=== PATIENT | female | born 1945 | race Caucasian/White ===

== ENCOUNTER → 2016-08-24 | Outpatient (CLI) | payer MEDICARE ==
[2016-08-24 12:55] LABS: HEMOGLOBIN 13.8 g/dL (11.7-16.4)
[2016-08-24 13:16] LABS: ASPARTATE AMINO TRANSFERASE 93 U/L (15-37); BLOOD UREA NITROGEN 22 mg/dL (7-18)
== END | disposition home or self-care (01) ==
LOC: CFH 07:13
PROVIDERS: ATTEND Specialist
DX: C50.912 Malignant neoplasm of unspecified site of left female breast (principal); N39.0 Urinary tract infection, site not specified; R73.09 Other abnormal glucose
CPT/HCPCS: 36415; 80053; 81001; 83036; 85025

== ENCOUNTER → 2016-09-10 | Outpatient (CLI) | payer MEDICARE | END | disposition home or self-care (01) | LOC: CFH 08:15 | PROVIDERS: ATTEND Specialist | DX: C78.7 Secondary malignant neoplasm of liver and intrahepatic bile duct (principal); C50.919 Malignant neoplasm of unspecified site of unspecified female breast; K76.0 Fatty (change of) liver, not elsewhere classified | CPT/HCPCS: 76705 ==

== ENCOUNTER → 2016-09-24 | Outpatient (CLI) | payer MEDICARE ==
[2016-09-24 11:50] LABS: ASPARTATE AMINO TRANSFERASE 76 U/L (15-37); BLOOD UREA NITROGEN 27 mg/dL (7-18)
[2016-09-25 10:33] LABS: HEPATITIS C VIRUS ANTIBODY Nonreactive (Nonreactive)
== END | disposition home or self-care (01) ==
LOC: CFH 07:27
PROVIDERS: ATTEND Specialist
DX: C50.919 Malignant neoplasm of unspecified site of unspecified female breast (principal); M45.0 Ankylosing spondylitis of multiple sites in spine; Z92.25 Personal history of immunosuppression therapy
CPT/HCPCS: 36415; 80053; 82728; 85025; 86803; 87340

== ENCOUNTER → 2016-10-27 | Outpatient (CLI) | payer MEDICARE ==
[2016-10-27 13:13] LABS: ASPARTATE AMINO TRANSFERASE 57 U/L (15-37); BLOOD UREA NITROGEN 27 mg/dL (7-18)
== END | disposition home or self-care (01) ==
LOC: CFH 07:33
PROVIDERS: ATTEND Specialist
DX: C50.912 Malignant neoplasm of unspecified site of left female breast (principal)
CPT/HCPCS: 36415; 80053; 85025

== ENCOUNTER → 2016-11-25 | Outpatient (CLI) | payer MEDICARE ==
[2016-11-25 13:02] LABS: ASPARTATE AMINO TRANSFERASE 89 U/L (15-37); BLOOD UREA NITROGEN 20 mg/dL (7-18)
== END | disposition home or self-care (01) ==
LOC: CFH 08:01
PROVIDERS: ATTEND Specialist
DX: M45.0 Ankylosing spondylitis of multiple sites in spine (principal); R94.5 Abnormal results of liver function studies; Z92.25 Personal history of immunosuppression therapy
CPT/HCPCS: 36415; 80053; 85025

== ENCOUNTER → 2016-12-27 | Outpatient (CLI) | payer MEDICARE ==
[2016-12-27 12:42] LABS: BLOOD UREA NITROGEN 24 mg/dL (7-18)
[2016-12-27 12:47] LABS: ASPARTATE AMINO TRANSFERASE 113 U/L (15-37)
== END | disposition home or self-care (01) ==
LOC: CFH 07:40
PROVIDERS: ATTEND Specialist
DX: M45.0 Ankylosing spondylitis of multiple sites in spine (principal); R94.5 Abnormal results of liver function studies; Z92.25 Personal history of immunosuppression therapy
CPT/HCPCS: 36415; 80053; 85025

== ENCOUNTER → 2017-02-25 | Outpatient (CLI) | payer MEDICARE ==
[2017-02-25 12:51] LABS: HEMATOCRIT 41.7 % (34.6-47.8); HEMOGLOBIN 14.2 g/dL (11.7-16.4)
[2017-02-25 13:15] LABS: ASPARTATE AMINO TRANSFERASE 125 U/L (15-37); BLOOD UREA NITROGEN 22 mg/dL (7-18)
== END | disposition home or self-care (01) ==
LOC: CFH 07:28
PROVIDERS: ATTEND Specialist
DX: M45.0 Ankylosing spondylitis of multiple sites in spine (principal); R94.5 Abnormal results of liver function studies; Z92.25 Personal history of immunosuppression therapy
CPT/HCPCS: 36415; 80053; 85025

== ENCOUNTER → 2017-04-28 | Outpatient (CLI) | payer MEDICARE ==
[2017-04-28 12:30] LABS: HEMOGLOBIN 14.5 g/dL (11.7-16.4); WHITE BLOOD COUNT 5.3 x10^3/uL (3.4-10)
[2017-04-28 12:51] LABS: ASPARTATE AMINO TRANSFERASE 65 U/L (15-37); BLOOD UREA NITROGEN 20 mg/dL (7-18)
== END | disposition home or self-care (01) ==
LOC: CFH 07:03
PROVIDERS: ATTEND Specialist
DX: M45.0 Ankylosing spondylitis of multiple sites in spine (principal); R94.5 Abnormal results of liver function studies; Z92.25 Personal history of immunosuppression therapy
CPT/HCPCS: 36415; 80053; 85025

== ENCOUNTER → 2017-05-18 | Outpatient (CLI) | payer MEDICARE | END | disposition home or self-care (01) | LOC: CFH 10:02 | PROVIDERS: ATTEND Specialist | DX: Z12.31 Encounter for screening mammogram for malignant neoplasm of breast (principal); Z90.12 Acquired absence of left breast and nipple; Z85.3 Personal history of malignant neoplasm of breast | CPT/HCPCS: 77063; G0202 ==

== ENCOUNTER → 2017-06-29 | Outpatient (CLI) | payer MEDICARE ==
[2017-06-29 12:38] LABS: BASOPHILS # (AUTO) 0.03 x10^3/uL (0-0.1); BASOPHILS % (AUTO) 0 % (0-1); EOSINOPHILS # (AUTO) 0.06 x10^3/uL (0-0.4); EOSINOPHILS % (AUTO) 1 % (1-7); LYMPHOCYTES # (AUTO) 2.19 x10^3/uL (1-3.4); LYMPHOCYTES % (AUTO) 26 % (22-44); MD NO; MEAN CORPUSCULAR HEMOGLOBIN 32.4 pg (27.0-34.8); MEAN CORPUSCULAR VOLUME 98.2 fL (80-100); MEAN PLATELET VOLUME 10.1 fL (7.4-10.4); MONOCYTES # (AUTO) 0.81 x10^3/uL (0.2-0.8); MONOCYTES % (AUTO) 10 % (2-9); NEUTROPHILS # (AUTO) 5.38 x10^3/uL (1.8-6.8); NEUTROPHILS % (AUTO) 64 % (42-75); PLATELET COUNT 222 x10^3/uL (130-400); RED CELL DISTRIBUTION WIDTH 14.6 % (9.6-15.2)
[2017-06-29 12:49] LABS: ALBUMIN 3.6 g/dL (3.4-5.0); ANION GAP 9 mmol/L (5-15); CALCIUM 9.3 mg/dL (8.5-10.1); CHLORIDE 105 mmol/L (98-107)
[2017-06-29 12:53] LABS: ALANINE AMINOTRANSFERASE 160 U/L (12-78); ALKALINE PHOSPHATASE 115 U/L (45-117); BILIRUBIN,TOTAL 0.8 mg/dL (0.2-1.0); TOTAL PROTEIN 7.1 g/dL (6.4-8.2)
== END ==
LOC: CFH 07:42
PROVIDERS: ATTEND Specialist
DX: M45.0 Ankylosing spondylitis of multiple sites in spine (principal); M46.90 Unspecified inflammatory spondylopathy, site unspecified; R94.5 Abnormal results of liver function studies; Z92.25 Personal history of immunosuppression therapy
CPT/HCPCS: 36415; 80053; 85025

== ENCOUNTER → 2017-08-26 | Outpatient (CLI) | payer MEDICARE ==
[2017-08-26 12:37] LABS: BASOPHILS # (AUTO) 0.02 x10^3/uL (0-0.1); BASOPHILS % (AUTO) 0 % (0-1); EOSINOPHILS # (AUTO) 0.04 x10^3/uL (0-0.4); EOSINOPHILS % (AUTO) 1 % (1-7); LYMPHOCYTES # (AUTO) 2.17 x10^3/uL (1-3.4); LYMPHOCYTES % (AUTO) 33 % (22-44); MD NO; MEAN CORPUSCULAR HEMOGLOBIN 32.7 pg (27.0-34.8); MEAN CORPUSCULAR HGB CONC 33.5 g/dL (32.4-35.8); MEAN CORPUSCULAR VOLUME 97.7 fL (80-100); MEAN PLATELET VOLUME 9.9 fL (7.4-10.4); MONOCYTES # (AUTO) 0.94 x10^3/uL (0.2-0.8); MONOCYTES % (AUTO) 14 % (2-9); NEUTROPHILS # (AUTO) 3.35 x10^3/uL (1.8-6.8); NEUTROPHILS % (AUTO) 51 % (42-75); PLATELET COUNT 204 x10^3/uL (130-400); RED BLOOD COUNT 4.08 x10^6/uL (3.82-5.3); RED CELL DISTRIBUTION WIDTH 14.2 % (9.6-15.2)
[2017-08-26 12:48] LABS: ALBUMIN 3.3 g/dL (3.4-5.0); ANION GAP 8 mmol/L (5-15); CHLORIDE 108 mmol/L (98-107)
[2017-08-26 12:51] LABS: ALANINE AMINOTRANSFERASE 179 U/L (12-78); ALKALINE PHOSPHATASE 107 U/L (45-117); BILIRUBIN,TOTAL 0.8 mg/dL (0.2-1.0); CALCIUM 9.1 mg/dL (8.5-10.1); CREATININE 0.84 mg/dL (0.55-1.02); TOTAL PROTEIN 6.9 g/dL (6.4-8.2)
== END | disposition home or self-care (01) ==
LOC: CFH 07:00
PROVIDERS: ATTEND Specialist
DX: M45.0 Ankylosing spondylitis of multiple sites in spine (principal); M46.90 Unspecified inflammatory spondylopathy, site unspecified; R94.5 Abnormal results of liver function studies; Z92.25 Personal history of immunosuppression therapy
CPT/HCPCS: 36415; 80053; 85025

== ENCOUNTER → 2017-11-25 | Outpatient (CLI) | payer MEDICARE ==
[2017-11-25 12:49] LABS: BASOPHILS # (AUTO) 0.04 x10^3/uL (0-0.1); BASOPHILS % (AUTO) 1 % (0-1); EOSINOPHILS # (AUTO) 0.08 x10^3/uL (0-0.4); EOSINOPHILS % (AUTO) 2 % (1-7); LYMPHOCYTES # (AUTO) 1.71 x10^3/uL (1-3.4); LYMPHOCYTES % (AUTO) 32 % (22-44); MD NO; MEAN CORPUSCULAR HEMOGLOBIN 33.3 pg (27.0-34.8); MEAN CORPUSCULAR HGB CONC 33.8 g/dL (32.4-35.8); MEAN CORPUSCULAR VOLUME 98.4 fL (80-100); MONOCYTES # (AUTO) 0.62 x10^3/uL (0.2-0.8); MONOCYTES % (AUTO) 12 % (2-9); NEUTROPHILS # (AUTO) 2.86 x10^3/uL (1.8-6.8); NEUTROPHILS % (AUTO) 54 % (42-75); PLATELET COUNT 176 x10^3/uL (130-400); RED BLOOD COUNT 4.15 x10^6/uL (3.82-5.3); RED CELL DISTRIBUTION WIDTH 14.3 % (9.6-15.2)
[2017-11-25 14:03] LABS: CALCIUM 9.4 mg/dL (8.5-10.1); CHLORIDE 107 mmol/L (98-107)
[2017-11-25 14:17] LABS: ALANINE AMINOTRANSFERASE 74 U/L (12-78); ALBUMIN 3.5 g/dL (3.4-5.0); ALKALINE PHOSPHATASE 125 U/L (45-117); ANION GAP 6 mmol/L (5-15); BILIRUBIN,TOTAL 0.8 mg/dL (0.2-1.0); CREATININE 0.83 mg/dL (0.55-1.02); T4 (THYROXINE) 9.9 mcg/dL (4.8-13.9); TOTAL PROTEIN 7.1 g/dL (6.4-8.2)
== END | disposition home or self-care (01) ==
LOC: CFH 07:09
PROVIDERS: ATTEND Specialist
DX: C50.919 Malignant neoplasm of unspecified site of unspecified female breast (principal); I10 Essential (primary) hypertension
CPT/HCPCS: 36415; 80053; 84436; 84443; 84481; 85025

== ENCOUNTER → 2018-02-28 | Outpatient (CLI) | payer MEDICARE ==
[2018-02-28 12:42] LABS: BASOPHILS % (AUTO) 0 % (0-1); EOSINOPHILS # (AUTO) 0.04 x10^3/uL (0-0.4); EOSINOPHILS % (AUTO) 1 % (1-7); LYMPHOCYTES # (AUTO) 1.79 x10^3/uL (1-3.4); LYMPHOCYTES % (AUTO) 34 % (22-44); MD NO; MEAN CORPUSCULAR HEMOGLOBIN 32.9 pg (27.0-34.8); MEAN CORPUSCULAR HGB CONC 33.5 g/dL (32.4-35.8); MEAN CORPUSCULAR VOLUME 98.3 fL (80-100); MEAN PLATELET VOLUME 9.6 fL (7.4-10.4); MONOCYTES # (AUTO) 0.77 x10^3/uL (0.2-0.8); MONOCYTES % (AUTO) 15 % (2-9); NEUTROPHILS # (AUTO) 2.72 x10^3/uL (1.8-6.8); NEUTROPHILS % (AUTO) 51 % (42-75); PLATELET COUNT 198 x10^3/uL (130-400); RED BLOOD COUNT 4.07 x10^6/uL (3.82-5.3); RED CELL DISTRIBUTION WIDTH 13.5 % (9.6-15.2)
[2018-02-28 12:53] LABS: ALANINE AMINOTRANSFERASE 109 U/L (12-78); ALBUMIN 3.6 g/dL (3.4-5.0); ANION GAP 9 mmol/L (5-15); CALCIUM 9.4 mg/dL (8.5-10.1); CHLORIDE 108 mmol/L (98-107); CREATININE 0.67 mg/dL (0.55-1.02)
[2018-02-28 12:56] LABS: ALKALINE PHOSPHATASE 119 U/L (45-117); BILIRUBIN,TOTAL 0.7 mg/dL (0.2-1.0); TOTAL PROTEIN 7.4 g/dL (6.4-8.2)
== END | disposition home or self-care (01) ==
LOC: CFH 07:00
PROVIDERS: ATTEND Specialist
DX: M45.0 Ankylosing spondylitis of multiple sites in spine (principal); M46.90 Unspecified inflammatory spondylopathy, site unspecified; R94.5 Abnormal results of liver function studies; C50.919 Malignant neoplasm of unspecified site of unspecified female breast; Z92.25 Personal history of immunosuppression therapy
CPT/HCPCS: 36415; 80053; 85025; 86300

== ENCOUNTER → 2018-05-18 | Outpatient (CLI) | payer MEDICARE ==
[2018-05-18 12:42] LABS: BASOPHILS # (AUTO) 0.03 x10^3/uL (0-0.1); BASOPHILS % (AUTO) 1 % (0-1); EOSINOPHILS # (AUTO) 0.06 x10^3/uL (0-0.4); EOSINOPHILS % (AUTO) 1 % (1-7); LYMPHOCYTES # (AUTO) 2.43 x10^3/uL (1-3.4); LYMPHOCYTES % (AUTO) 34 % (22-44); MD NO; MEAN CORPUSCULAR HEMOGLOBIN 33.5 pg (27.0-34.8); MEAN CORPUSCULAR HGB CONC 34.1 g/dL (32.4-35.8); MEAN CORPUSCULAR VOLUME 98.4 fL (80-100); MEAN PLATELET VOLUME 9.6 fL (7.4-10.4); MONOCYTES % (AUTO) 15 % (2-9); NEUTROPHILS # (AUTO) 3.55 x10^3/uL (1.8-6.8); NEUTROPHILS % (AUTO) 50 % (42-75); PLATELET COUNT 217 x10^3/uL (130-400); RED BLOOD COUNT 4.45 x10^6/uL (3.82-5.3); RED CELL DISTRIBUTION WIDTH 13.6 % (9.6-15.2)
[2018-05-18 12:53] LABS: CHLORIDE 109 mmol/L (98-107)
[2018-05-18 13:14] LABS: ALANINE AMINOTRANSFERASE 86 U/L (12-78); ALKALINE PHOSPHATASE 135 U/L (45-117); ANION GAP 7 mmol/L (5-15); BILIRUBIN,TOTAL 0.7 mg/dL (0.2-1.0); CALCIUM 9.5 mg/dL (8.5-10.1); CREATININE 0.89 mg/dL (0.55-1.02); TOTAL PROTEIN 7.7 g/dL (6.4-8.2)
== END | disposition home or self-care (01) ==
LOC: CFH 09:05
PROVIDERS: ATTEND Specialist
DX: Z12.31 Encounter for screening mammogram for malignant neoplasm of breast (principal); M85.88 Other specified disorders of bone density and structure, other site; C50.412 Malignant neoplasm of upper-outer quadrant of left female breast; Z85.3 Personal history of malignant neoplasm of breast
CPT/HCPCS: 36415; 77080; 80053; 85025; 86300; 77067

== ENCOUNTER → 2018-08-02 | Outpatient (CLI) | payer MEDICARE ==
[2018-08-02 13:04] LABS: BASOPHILS # (AUTO) 0.04 x10^3/uL (0-0.1); BASOPHILS % (AUTO) 1 % (0-1); EOSINOPHILS # (AUTO) 0.04 x10^3/uL (0-0.4); EOSINOPHILS % (AUTO) 1 % (1-7); LYMPHOCYTES # (AUTO) 1.93 x10^3/uL (1-3.4); LYMPHOCYTES % (AUTO) 31 % (22-44); MD NO; MEAN CORPUSCULAR HEMOGLOBIN 33.6 pg (27.0-34.8); MEAN CORPUSCULAR HGB CONC 34.4 g/dL (32.4-35.8); MEAN CORPUSCULAR VOLUME 97.6 fL (80-100); MEAN PLATELET VOLUME 8.8 fL (7.4-10.4); MONOCYTES # (AUTO) 0.98 x10^3/uL (0.2-0.8); MONOCYTES % (AUTO) 16 % (2-9); NEUTROPHILS # (AUTO) 3.29 x10^3/uL (1.8-6.8); NEUTROPHILS % (AUTO) 52 % (42-75); PLATELET COUNT 222 x10^3/uL (130-400); RED CELL DISTRIBUTION WIDTH 13.3 % (9.6-15.2)
[2018-08-02 13:17] LABS: CALCIUM 9.6 mg/dL (8.5-10.1); CHLORIDE 109 mmol/L (98-107)
[2018-08-02 13:22] LABS: ALANINE AMINOTRANSFERASE 129 U/L (12-78); ALBUMIN 3.9 g/dL (3.4-5.0); ALKALINE PHOSPHATASE 123 U/L (45-117); ANION GAP 6 mmol/L (5-15); BILIRUBIN,TOTAL 0.9 mg/dL (0.2-1.0); CREATININE 0.78 mg/dL (0.55-1.02); TOTAL PROTEIN 7.2 g/dL (6.4-8.2)
== END | disposition home or self-care (01) ==
LOC: CFH 08:08
PROVIDERS: ATTEND Internal Medicine Hematology & Oncology
DX: C50.412 Malignant neoplasm of upper-outer quadrant of left female breast (principal)
CPT/HCPCS: 36415; 80053; 85025

== ENCOUNTER 2018-09-17 09:47 | Emergency (ER) | payer MEDICARE ==
[~2018-09-17] VITALS: Ht 165.1 cm; Wt 142.0 kg
[2018-09-17 09:50] VITALS: BP 150/82
[2018-09-17] MEDS ORDERED: CARBAMIDE PEROXIDE EAR DROPS 6.5%, 15ML ONE (10:13)
[2018-09-17] MEDS ORDERED: CARBAMIDE PEROXIDE EAR DROPS 6.5%, 15ML RIGHT EAR ONE (10:30)
== END 2018-09-17 11:28 | disposition home or self-care (01) ==
LOC: ED 11:19
DX: H61.21 Impacted cerumen, right ear (principal); I10 Essential (primary) hypertension; Z87.891 Personal history of nicotine dependence
CPT/HCPCS: 69209; 99282

== ENCOUNTER 2018-11-03 07:26 | Outpatient (CLI) | payer MEDICARE ==
[2018-11-03 10:58] LABS: BASOPHILS # (AUTO) 0.03 x10^3/uL (0-0.1); BASOPHILS % (AUTO) 1 % (0-1); EOSINOPHILS # (AUTO) 0.04 x10^3/uL (0-0.4); EOSINOPHILS % (AUTO) 1 % (1-7); LYMPHOCYTES # (AUTO) 1.86 x10^3/uL (1-3.4); LYMPHOCYTES % (AUTO) 29 % (22-44); MD NO; MEAN CORPUSCULAR HEMOGLOBIN 33.4 pg (27.0-34.8); MEAN CORPUSCULAR HGB CONC 33.4 g/dL (32.4-35.8); MEAN CORPUSCULAR VOLUME 99.8 fL (80-100); MEAN PLATELET VOLUME 9.4 fL (7.4-10.4); MONOCYTES # (AUTO) 0.95 x10^3/uL (0.2-0.8); MONOCYTES % (AUTO) 15 % (2-9); NEUTROPHILS # (AUTO) 3.46 x10^3/uL (1.8-6.8); NEUTROPHILS % (AUTO) 55 % (42-75); PLATELET COUNT 191 x10^3/uL (130-400)
[2018-11-03 12:20] LABS: ANION GAP 6 mmol/L (5-15); CALCIUM 9.7 mg/dL (8.5-10.1); CHLORIDE 109 mmol/L (98-107)
[2018-11-03 12:24] LABS: % IRON SATURATION 26 % (20-55); ALANINE AMINOTRANSFERASE 112 U/L (12-78); ALKALINE PHOSPHATASE 129 U/L (45-117); BILIRUBIN,TOTAL 0.8 mg/dL (0.2-1.0); CREATININE 0.82 mg/dL (0.55-1.02); IRON LEVEL 104 mcg/dL (50-170); TOTAL IRON BINDING CAPACITY 394 mcg/dL (250-450); TOTAL PROTEIN 7.2 g/dL (6.4-8.2)
== END 2018-11-03 23:59 | disposition home or self-care (01) ==
LOC: LAB 07:26 → CFH 23:59
PROVIDERS: ATTEND Specialist
DX: C50.412 Malignant neoplasm of upper-outer quadrant of left female breast (principal); M45.0 Ankylosing spondylitis of multiple sites in spine; R74.0 Nonspecific elevation of levels of transaminase and lactic acid dehydrogenase [LDH]
CPT/HCPCS: 36415; 80053; 82103; 82390; 83516; 83540; 83550; 85025; 86038; 86480; 86704; 86706; 87340

== ENCOUNTER 2019-01-05 12:54 | Outpatient (CLI) | payer MEDICARE | END 2019-01-05 23:59 | disposition home or self-care (01) | LOC: CFH 12:54 | PROVIDERS: ATTEND Internal Medicine Hematology & Oncology | DX: C50.412 Malignant neoplasm of upper-outer quadrant of left female breast (principal) | CPT/HCPCS: 36415; 80053; 85025 ==

== ENCOUNTER 2019-03-21 08:08 | Outpatient (CLI) | payer MEDICARE ==
[2019-03-21 13:24] LABS: MEAN CORPUSCULAR HEMOGLOBIN 33.8 pg (27.0-34.8); MEAN CORPUSCULAR HGB CONC 33.9 g/dL (32.4-35.8); MEAN CORPUSCULAR VOLUME 99.5 fL (80-100); MEAN PLATELET VOLUME 8.7 fL (7.4-10.4); PLATELET COUNT 203 x10^3/uL (130-400); RED CELL DISTRIBUTION WIDTH 13.5 % (9.6-15.2)
[2019-03-21 13:25] LABS: INTERNATIONAL NORMALIZED RATIO 1.03 (0.93-1.1); PROTHROMBIN TIME 10.8 Seconds (9.6-11.5)
[2019-03-21 13:44] LABS: HEMOGLOBIN A1C 5.4 % (4.2-6.3)
[2019-03-21 14:11] LABS: MD YES
[2019-03-21 14:14] LABS: BAND#(MANUAL) 0.11 x10^3/uL; BANDS%(MANUAL) 2 % (0-7); EOS#(MANUAL) 0.16 x10^3/uL (0.0-0.4); EOS% (MANUAL) 3 % (1-7); LYMPH#(MANUAL) 1.84 x10^3/uL (1-3.4); LYMPHS% (MANUAL) 34 % (22-44); MONOS#(MANUAL) 0.49 x10^3/uL (0.3-2.7); MONOS% (MANUAL) 9 % (2-9); REACTIVE LYMPHS # (MANUAL) 0.27 x10^3/uL (0-0); REACTIVE LYMPHS % (MANUAL) 5 % (0-0); SEG#(MANUAL) 2.54 x10^3/uL (1.8-6.8); SEGS% (MANUAL) 47 % (42-75)
[2019-03-21 14:15] LABS: <PLATELET ESTIMATE> ADEQUATE; <PLT MORPHOLOGY> NORMAL PLT MORPH; <RBC MORPHOLOGY> NORMAL
== END 2019-03-21 23:59 | disposition home or self-care (01) ==
LOC: CFH 08:08
PROVIDERS: ATTEND Physician Assistant
DX: R74.8 Abnormal levels of other serum enzymes (principal)
CPT/HCPCS: 36415; 83036; 85025; 85610

== ENCOUNTER 2019-03-23 06:02 | Day surgery (SDC) | payer MEDICARE ==
[~2019-03-23] VITALS: Ht 165.1 cm; Wt 141.6 kg
[2019-03-23 07:28] VITALS: BP 175/77
[2019-03-23] MEDS ORDERED: ANAS1TAB PO (07:37)
[2019-03-23] MEDS ORDERED: GLUC1TAB35 PO (07:37)
[2019-03-23] MEDS ORDERED: zometa (07:37)
[2019-03-23] MEDS ORDERED: UBID100C41 PO (07:37)
[2019-03-23] MEDS ORDERED: TELM1TAB3 PO (07:37)
[2019-03-23] MEDS ORDERED: TURM538C PO (07:37)
[2019-03-23] MEDS ORDERED: MULT-658 PO (07:37)
[2019-03-23] MEDS ORDERED: MIDAZOLAM 1 MG/ML, 5ML ONE (07:41)
[2019-03-23] MEDS ORDERED: FLUMAZENIL 0.1 MG/1 ML, 5ML ONE (07:41)
[2019-03-23] MEDS ORDERED: FENTANYL PF 100 MCG/2ML ONE (07:41)
[2019-03-23] MEDS ORDERED: NALOXONE 1 MG/ML, 2ML ONE (07:41)
[2019-03-23] MEDS ORDERED: LIDOCAINE 1%, 10ML ONE (08:04)
[2019-03-23] MEDS ORDERED: ASPI325T17 PO (08:14)
== END 2019-03-23 09:50 | disposition home or self-care (01) ==
LOC: OUT 06:02 → EDSTATUS 08:00 → OUT 09:50
PROVIDERS: ATTEND Physician Assistant
DX: R74.8 Abnormal levels of other serum enzymes (principal); I10 Essential (primary) hypertension; G47.33 Obstructive sleep apnea (adult) (pediatric); I27.20 Pulmonary hypertension, unspecified; E66.9 Obesity, unspecified; Z68.43 Body mass index [BMI] 50.0-59.9, adult; Z79.899 Other long term (current) drug therapy; Z85.3 Personal history of malignant neoplasm of breast; Z87.891 Personal history of nicotine dependence; Z90.12 Acquired absence of left breast and nipple
CPT/HCPCS: 47000; 76942; 88307; 88313; 99156; 99157; J2250; J3010; J2310

== ENCOUNTER 2019-05-21 09:33 | Outpatient (CLI) | payer MEDICARE ==
[~2019-05-21 09:33] MED LIST: ANAS1TAB PO; ASPI325T17 PO; GLUC1TAB35 PO; MULT-658 PO; TELM1TAB3 PO; TURM538C PO; UBID100C41 PO; zometa
[2019-05-21 12:53] LABS: ALBUMIN 3.7 g/dL (3.4-5.0); BILIRUBIN, DIRECT 0.2 mg/dL (0.1-0.2); BILIRUBIN,INDIRECT 0.7 mg/dL (0.0-2.0); BILIRUBIN,TOTAL 0.9 mg/dL (0.2-1.0)
== END 2019-05-21 23:59 | disposition home or self-care (01) ==
LOC: CFH 09:33
PROVIDERS: ATTEND Internal Medicine Hematology & Oncology
DX: Z12.31 Encounter for screening mammogram for malignant neoplasm of breast (principal); R74.8 Abnormal levels of other serum enzymes
CPT/HCPCS: 36415; 77063; 77067; 80076

== ENCOUNTER → 2019-07-17 | Outpatient (CLI) | payer MEDICARE ==
[2019-07-17 13:13] LABS: CHLORIDE 112 mmol/L (98-107)
[2019-07-17 13:33] LABS: ALANINE AMINOTRANSFERASE 89 U/L (12-78); ALBUMIN 3.8 g/dL (3.4-5.0); ALKALINE PHOSPHATASE 108 U/L (45-117); ANION GAP 6 mmol/L (5-15); BILIRUBIN,TOTAL 0.7 mg/dL (0.2-1.0); CALCIUM 9.7 mg/dL (8.5-10.1); CREATININE 0.77 mg/dL (0.55-1.02); TOTAL PROTEIN 6.9 g/dL (6.4-8.2)
[2019-07-17 13:36] LABS: MEAN CORPUSCULAR HEMOGLOBIN 33.3 pg (27.0-34.8); MEAN PLATELET VOLUME 8.8 fL (7.4-10.4); PLATELET COUNT 212 x10^3/uL (130-400); RED BLOOD COUNT 4.23 x10^6/uL (3.82-5.3); RED CELL DISTRIBUTION WIDTH 13.1 % (9.6-15.2)
[2019-07-17 13:42] LABS: BASOPHILS # (AUTO) 0.03 x10^3/uL (0-0.1); BASOPHILS % (AUTO) 0 % (0-1); EOSINOPHILS # (AUTO) 0.03 x10^3/uL (0-0.4); EOSINOPHILS % (AUTO) 1 % (1-7); LYMPHOCYTES # (AUTO) 2.19 x10^3/uL (1-3.4); LYMPHOCYTES % (AUTO) 31 % (22-44); MD NO; MONOCYTES # (AUTO) 1.35 x10^3/uL (0.2-0.8); MONOCYTES % (AUTO) 19 % (2-9); NEUTROPHILS # (AUTO) 3.36 x10^3/uL (1.8-6.8); NEUTROPHILS % (AUTO) 48 % (42-75)
== END | disposition home or self-care (01) ==
LOC: CFH 09:55
PROVIDERS: ATTEND Internal Medicine Hematology & Oncology
DX: C50.412 Malignant neoplasm of upper-outer quadrant of left female breast (principal)
CPT/HCPCS: 36415; 80053; 85025

== ENCOUNTER → 2019-08-06 | Outpatient (CLI) | payer MEDICARE | END | disposition home or self-care (01) | LOC: CVU 08:19 | PROVIDERS: ATTEND Family Medicine | DX: I08.0 Rheumatic disorders of both mitral and aortic valves (principal); R06.02 Shortness of breath | CPT/HCPCS: 71046; 93306 ==

== ENCOUNTER 2019-12-11 11:46 | Inpatient (IN) | payer MEDICARE ==
[~2019-12-11] VITALS: Ht 165.1 cm; Wt 148.6 kg
[2019-12-11] MEDS ORDERED: ONDANSETRON 2MG/ML, 2ML IVPush ONE (13:00)
[2019-12-11] MEDS ORDERED: SODIUM CHLORIDE FLUSH 10ML SYR IVF ONE ×2 (13:00→14:00)
[2019-12-11] MEDS ORDERED: SODIUM CHLORIDE 0.9% 1,000ML IVBOLUS ONE ×2 (13:00→14:00)
[2019-12-11] MEDS ORDERED: HYDROmorphone 2 MG/ML, 1ML IVPush PRN (13:00)
[2019-12-11 13:13] LABS: MICROSCOPIC INDICATED
[2019-12-11 13:28] LABS: BASOPHILS % (AUTO) 0 % (0-1); EOSINOPHILS # (AUTO) 0.01 x10^3/uL (0-0.4); EOSINOPHILS % (AUTO) 0 % (1-7); LYMPHOCYTES # (AUTO) 0.98 x10^3/uL (1-3.4); LYMPHOCYTES % (AUTO) 9 % (22-44); MD NO; MEAN CORPUSCULAR HEMOGLOBIN 33.1 pg (27.0-34.8); MEAN CORPUSCULAR HGB CONC 33.5 g/dL (32.4-35.8); MEAN CORPUSCULAR VOLUME 98.8 fL (80-100); MEAN PLATELET VOLUME 8.6 fL (7.4-10.4); MONOCYTES # (AUTO) 0.46 x10^3/uL (0.2-0.8); MONOCYTES % (AUTO) 5 % (2-9); NEUTROPHILS % (AUTO) 86 % (42-75); PLATELET COUNT 228 x10^3/uL (130-400); RED BLOOD COUNT 4.22 x10^6/uL (3.82-5.3); RED CELL DISTRIBUTION WIDTH 13.4 % (9.6-15.2)
[2019-12-11 13:29] LABS: ALANINE AMINOTRANSFERASE 75 U/L (12-78); ALBUMIN 4.1 g/dL (3.4-5.0); ANION GAP 5 mmol/L (5-15); CALCIUM 9.7 mg/dL (8.5-10.1); CHLORIDE 112 mmol/L (98-107); CREATININE 0.88 mg/dL (0.55-1.02)
[2019-12-11 13:31] LABS: ALKALINE PHOSPHATASE 113 U/L (45-117); BILIRUBIN,TOTAL 0.8 mg/dL (0.2-1.0); TOTAL PROTEIN 7.5 g/dL (6.4-8.2)
[2019-12-11] MEDS ORDERED: AZITHROMYCIN 500 MG in SODIUM CHLORIDE 0.9% 250 ML IV ONE (14:00)
[2019-12-11] MEDS ORDERED: CEFTRIAXONE PMX 1GM/50ML 50 ML IVPB ONE (14:00)
[2019-12-11] MEDS ORDERED: PHENAZOPYRIDINE 200 MG TABLET PO ONE (15:00)
[2019-12-11] MEDS ORDERED: ONDANSETRON 2MG/ML, 2ML IVPush PRN (15:00)
[2019-12-11] MEDS ORDERED: LIDODERM 5% PATCH TD PRN (15:00)
[2019-12-11] MEDS ORDERED: morphine SULFATE 10 MG/ML, 1ML IVPush PRN (15:00)
[2019-12-11] MEDS ORDERED: MELATONIN 5 MG TABLET PO PRN (15:00)
[2019-12-11] MEDS ORDERED: ONDANSETRON ODT 4 MG PO PRN (15:00)
[2019-12-11] MEDS: LACTATED RINGERS 1,000 ML IV SCH (15:00)
[2019-12-11] MEDS ORDERED: KETOROLAC 30 MG/1 ML IV PRN ×2 (15:00→17:56)
[2019-12-11] MEDS ORDERED: ACETAMINOPHEN 325 MG TABLET PO PRN (15:00)
[2019-12-11] MEDS ORDERED: CEFTRIAXONE PMX 1GM/50ML 50 ML ONE (15:29)
[2019-12-11] MEDS: CEFTRIAXONE PMX 1GM/50ML 50 ML IV SCH (16:00)
[2019-12-11] MEDS: AZITHROMYCIN 500 MG in SODIUM CHLORIDE 0.9% 250 ML IV SCH (16:00)
[2019-12-11] MEDS ORDERED: KETOROLAC 30 MG/1 ML ONE (17:02)
[2019-12-11 18:10] VITALS: BP 194/93
[2019-12-11] MEDS: ENOXAPARIN 40 MG/0.4 ML SQ SCH (18:12)
[2019-12-11] MEDS: ENALAPRILAT 1.25 MG/ML, 2ML IVPush PRN (18:12)
[2019-12-11] MEDS ORDERED: FAMOTIDINE 40 MG TABLET ONE (20:46)
[2019-12-11 20:57] VITALS: BP 167/81
[2019-12-11] MEDS: FAMOTIDINE 20 MG TABLET PO SCH (21:00)
[2019-12-11] MEDS ORDERED: ONDANSETRON 2MG/ML, 2ML ONE (21:43)
[2019-12-11] MEDS ORDERED: HYDROmorphone 1 MG/ML, 1ML INJ ONE (21:43)
[2019-12-12 01:47] VITALS: BP 137/79
[2019-12-12] MEDS: LACTATED RINGERS 1,000 ML IV SCH (01:49)
[2019-12-12 06:01] LABS: CALCIUM 9.3 mg/dL (8.5-10.1); CHLORIDE 114 mmol/L (98-107)
[2019-12-12 06:04] LABS: ANION GAP 6 mmol/L (5-15); CREATININE 0.77 mg/dL (0.55-1.02)
[2019-12-12 06:05] LABS: MEAN CORPUSCULAR HEMOGLOBIN 33.5 pg (27.0-34.8); MEAN CORPUSCULAR VOLUME 98.8 fL (80-100); MEAN PLATELET VOLUME 8.5 fL (7.4-10.4); PLATELET COUNT 193 x10^3/uL (130-400); RED BLOOD COUNT 3.61 x10^6/uL (3.82-5.3); RED CELL DISTRIBUTION WIDTH 13.6 % (9.6-15.2)
[2019-12-12 06:48] LABS: MD YES
[2019-12-12 06:51] LABS: LYMPH#(MANUAL) 2.57 x10^3/uL (1-3.4); LYMPHS% (MANUAL) 27 % (22-44); SEG#(MANUAL) 5.23 x10^3/uL (1.8-6.8); SEGS% (MANUAL) 55 % (42-75)
[2019-12-12 06:52] LABS: <PLATELET ESTIMATE> ADEQUATE; <PLT MORPHOLOGY> NORMAL PLT MORPH; <RBC MORPHOLOGY> NORMAL; MONOS#(MANUAL) 1.71 x10^3/uL (0.3-2.7); MONOS% (MANUAL) 18 % (2-9)
[2019-12-12 07:47] VITALS: BP 129/68
[2019-12-12] MEDS: IRBESARTAN 150 MG TABLET PO SCH (09:00)
[2019-12-12] MEDS: ASPIRIN 325 MG TABLET PO SCH (09:00)
[2019-12-12] MEDS: ANASTROZOLE 1 MG TABLET PO SCH (09:00)
[2019-12-12] MEDS: FAMOTIDINE 20 MG TABLET PO SCH ×2 (09:00→20:09)
[2019-12-12] MEDS: MULTIVITAMIN 1 TABLET PO SCH (09:52)
[2019-12-12] MEDS ORDERED: FAMOTIDINE 40 MG TABLET ONE ×2 (10:46→20:03)
[2019-12-12 14:43] VITALS: BP 175/83
[2019-12-12] MEDS: ENALAPRILAT 1.25 MG/ML, 2ML IVPush PRN (14:58)
[2019-12-12] MEDS: AZITHROMYCIN 500 MG in SODIUM CHLORIDE 0.9% 250 ML IV SCH (15:19)
[2019-12-12 15:24] VITALS: BP 150/95
[2019-12-12] MEDS ORDERED: AZIT500T PO (15:54)
[2019-12-12] MEDS ORDERED: CEFD300C37 PO (15:54)
[2019-12-12] MEDS: CEFTRIAXONE PMX 1GM/50ML 50 ML IV SCH (17:08)
[2019-12-12] MEDS: ENOXAPARIN 40 MG/0.4 ML SQ SCH (17:18)
[2019-12-12 20:05] VITALS: BP 134/73
[2019-12-13 01:11] VITALS: BP 157/84
[2019-12-13 08:06] VITALS: BP 151/74
[2019-12-13] MEDS ORDERED: FAMOTIDINE 40 MG TABLET ONE (08:34)
[2019-12-13] MEDS: ANASTROZOLE 1 MG TABLET PO SCH (08:36)
[2019-12-13] MEDS: FAMOTIDINE 20 MG TABLET PO SCH (08:40)
[2019-12-13] MEDS: ASPIRIN 325 MG TABLET PO SCH (08:41)
[2019-12-13] MEDS: IRBESARTAN 150 MG TABLET PO SCH (08:41)
[2019-12-13] MEDS: MULTIVITAMIN 1 TABLET PO SCH (08:41)
[2019-12-13] MEDS: AZITHROMYCIN 500 MG in SODIUM CHLORIDE 0.9% 250 ML IV SCH (16:28)
[2019-12-13] MEDS ORDERED: ENOXAPARIN 30 MG/0.3 ML SQ SCH (17:00)
[2019-12-13] MEDS: CEFTRIAXONE PMX 1GM/50ML 50 ML IV SCH (17:00)
== END 2019-12-13 18:51 | disposition home or self-care (01) | DRG 193 ==
LOC: ED 13:50 → OBSVTOIN 13:56 → EDIP 13:56 → INTOOBSV 13:56 → ED 14:13 → SUATTDRO 14:43 → 4NE 17:39
PROVIDERS: ADMIT Family Medicine; ATTEND Hospitalist
PROC: 5A09357 Assistance with Respiratory Ventilation, Less than 24 Consecutive Hours, Continuous Positive Airway Pressure (ICD-10-PCS; principal; 2019-12-12)
DX: J18.1 Lobar pneumonia, unspecified organism (principal); J96.01 Acute respiratory failure with hypoxia; Z68.41 Body mass index [BMI] 40.0-44.9, adult; E66.01 Morbid (severe) obesity due to excess calories; I11.9 Hypertensive heart disease without heart failure; J98.4 Other disorders of lung; M19.90 Unspecified osteoarthritis, unspecified site; M45.9 Ankylosing spondylitis of unspecified sites in spine; Z20.828 Contact with and (suspected) exposure to other viral communicable diseases; D72.829 Elevated white blood cell count, unspecified; Z85.42 Personal history of malignant neoplasm of other parts of uterus; Z90.710 Acquired absence of both cervix and uterus; Z85.3 Personal history of malignant neoplasm of breast; Z79.82 Long term (current) use of aspirin; Z90.12 Acquired absence of left breast and nipple; Z82.49 Family history of ischemic heart disease and other diseases of the circulatory system
CPT/HCPCS: 36415; 71045; 80048; 80053; 81001; 83605; 85025; 87040; 87635; 93005; 94660; G0378; J0456; J0696; J1170; J1650; J1885; J2405; J7030; J7050; J7120

== ENCOUNTER → 2020-01-03 | Outpatient (CLI) | payer MEDICARE ==
[~2020-01-03] MED LIST changes: +AZIT500T PO; +CEFD300C37 PO
[2020-01-03 13:15] LABS: BASOPHILS # (AUTO) 0.04 x10^3/uL (0-0.1); BASOPHILS % (AUTO) 1 % (0-1); CHLORIDE 110 mmol/L (98-107); EOSINOPHILS # (AUTO) 0.03 x10^3/uL (0-0.4); EOSINOPHILS % (AUTO) 1 % (1-7); LYMPHOCYTES % (AUTO) 33 % (22-44); MD NO; MEAN CORPUSCULAR HEMOGLOBIN 32.6 pg (27.0-34.8); MEAN CORPUSCULAR HGB CONC 32.8 g/dL (32.4-35.8); MEAN CORPUSCULAR VOLUME 99.4 fL (80-100); MONOCYTES # (AUTO) 0.99 x10^3/uL (0.2-0.8); MONOCYTES % (AUTO) 16 % (2-9); NEUTROPHILS # (AUTO) 3.04 x10^3/uL (1.8-6.8); NEUTROPHILS % (AUTO) 50 % (42-75); PLATELET COUNT 205 x10^3/uL (130-400); RED BLOOD COUNT 4.18 x10^6/uL (3.82-5.3)
[2020-01-03 13:25] LABS: ALANINE AMINOTRANSFERASE 65 U/L (12-78); ALBUMIN 4.1 g/dL (3.4-5.0); ALKALINE PHOSPHATASE 109 U/L (45-117); ANION GAP 4 mmol/L (5-15); CALCIUM 9.7 mg/dL (8.5-10.1); CREATININE 0.78 mg/dL (0.55-1.02); TOTAL PROTEIN 7.1 g/dL (6.4-8.2)
== END | disposition home or self-care (01) ==
LOC: CFH 08:08
PROVIDERS: ATTEND Internal Medicine Hematology & Oncology
DX: C50.412 Malignant neoplasm of upper-outer quadrant of left female breast (principal); J18.9 Pneumonia, unspecified organism
CPT/HCPCS: 36415; 71046; 80053; 85025

== ENCOUNTER → 2020-01-22 | Outpatient (CLI) | payer MEDICARE ==
[~2020-01-22] MED LIST changes: +REGADENOSON 0.4 MG/5 ML SYRINGE ONE
== END | disposition home or self-care (01) ==
LOC: CFH 08:38
PROVIDERS: ATTEND Family Medicine
DX: R06.02 Shortness of breath (principal)
CPT/HCPCS: 78452; 93017; A9502; J2785

== ENCOUNTER → 2020-02-13 | Outpatient (CLI) | payer MEDICARE ==
[~2020-02-13] MED LIST changes: +OMNIPAQUE 350 MG/ML, 75ML BOTTLE ONE; -REGADENOSON 0.4 MG/5 ML SYRINGE ONE
== END | disposition home or self-care (01) ==
LOC: CFH 09:24
PROVIDERS: ATTEND Internal Medicine Hematology & Oncology
DX: C50.412 Malignant neoplasm of upper-outer quadrant of left female breast (principal); J84.10 Pulmonary fibrosis, unspecified
CPT/HCPCS: 71260; 82565; Q9967

== ENCOUNTER → 2020-05-26 | Outpatient (CLI) | payer MEDICARE ==
[~2020-05-26] MED LIST changes: -OMNIPAQUE 350 MG/ML, 75ML BOTTLE ONE
[2020-05-26 09:17] LABS: BASOPHILS % (AUTO) 1 % (0-1); EOSINOPHILS % (AUTO) 0 % (1-7); LYMPHOCYTES % (AUTO) 25 % (22-44); MEAN CORPUSCULAR HEMOGLOBIN 32.9 pg (27.0-34.8); MEAN CORPUSCULAR HGB CONC 33.7 g/dL (32.4-35.8); MEAN PLATELET VOLUME 8.1 fL (7.4-10.4); MONOCYTES % (AUTO) 17 % (2-9); NEUTROPHILS % (AUTO) 57 % (42-75); PLATELET COUNT 191 x10^3/uL (130-400); RED BLOOD COUNT 4.19 x10^6/uL (3.82-5.3)
[2020-05-26 09:29] LABS: CALCIUM 9.8 mg/dL (8.5-10.1); CHLORIDE 111 mmol/L (98-107)
[2020-05-26 09:34] LABS: ALANINE AMINOTRANSFERASE 70 U/L (12-78); ALKALINE PHOSPHATASE 109 U/L (45-117); ANION GAP 6 mmol/L (5-15); BILIRUBIN,TOTAL 0.9 mg/dL (0.2-1.0); C-REACTIVE PROTEIN, QUANT 0.05 mg/dL (0.02-0.49); CHOL/HDL RATIO 4.5; CHOLESTEROL, TOTAL 168 mg/dL (140-239); CREATININE 0.85 mg/dL (0.55-1.02); HDL CHOL % 22 % (28-40); HDL CHOLESTEROL (DIRECT) 37 mg/dL (40-60); LDL CHOLESTEROL,CALCULATED 101 mg/dL (54-169); LDL/HDL RATIO 2.7 (0.5-3.0); TOTAL PROTEIN 7.2 g/dL (6.4-8.2); TRIGLYCERIDES 152 mg/dL (50-200); VLDL CHOLESTEROL 30 mg/dL (0-25)
[2020-05-26 09:44] LABS: MD SCAN
== END | disposition home or self-care (01) ==
LOC: CFH 07:33
PROVIDERS: ATTEND Internal Medicine Hematology & Oncology
DX: Z12.31 Encounter for screening mammogram for malignant neoplasm of breast (principal); C50.412 Malignant neoplasm of upper-outer quadrant of left female breast; M85.88 Other specified disorders of bone density and structure, other site; R74.8 Abnormal levels of other serum enzymes; M45.9 Ankylosing spondylitis of unspecified sites in spine; E11.9 Type 2 diabetes mellitus without complications
CPT/HCPCS: 36415; 77063; 77067; 77080; 80053; 80061; 82977; 83036; 85025; 85651; 86140

== ENCOUNTER 2021-02-06 12:50 | Outpatient (CLI) | payer MEDICARE ==
[2021-02-06] MEDS ORDERED: OMNIPAQUE 350 MG/ML, 75ML BOTTLE ONE (13:49)
== END 2021-02-06 23:59 | disposition home or self-care (01) ==
LOC: CFH 12:50
PROVIDERS: ATTEND Internal Medicine Hematology & Oncology
DX: C50.412 Malignant neoplasm of upper-outer quadrant of left female breast (principal); J47.9 Bronchiectasis, uncomplicated; J84.10 Pulmonary fibrosis, unspecified; R06.02 Shortness of breath; M51.35 Other intervertebral disc degeneration, thoracolumbar region; I25.10 Atherosclerotic heart disease of native coronary artery without angina pectoris
CPT/HCPCS: 71260; 82565; Q9967